=== PATIENT | female | born 1965 | race African-American/Black ===

== ENCOUNTER 2023-06-24 14:12 | Emergency (ER) | payer OTHER ==
[~2023-06-24] VITALS: Ht 170.2 cm; Wt 54.0 kg
[2023-06-24 14:25] VITALS: O2SAT 100
[2023-06-24] MEDS ORDERED: IBUP-2029 MT (15:21)
[2023-06-24] MEDS ORDERED: AMOX-494 MT (15:21)
[2023-06-24 15:40] VITALS: BP 129/72; PULSE 87; RESP 16; TEMP 98.2
== END 2023-06-24 15:45 | disposition home or self-care (01) ==
LOC: ER 14:12
DX: K04.7 Periapical abscess without sinus (principal)
CPT/HCPCS: 99281; 99283